=== PATIENT | female | born 1995 | race African-American/Black ===

== ENCOUNTER 2023-07-16 13:46 | Emergency (ER) | payer OTHER, SELFPAY ==
--- NOTE | ~2023-07-16 | XR_ITS ---
XR finger 3rd RT min 2V 07/16/2023 14:33 INDICATION: Right third finger pain and swelling PROCEDURE: 4 views right third finger COMPARISON: No prior studies for comparison. FINDINGS: Fracture, dislocation or subluxation is not identified. The soft tissues appear within norm al limits. No foreign bodies are identified. IMPRESSION: 1: NO ACUTE BONE OR JOINT ABNORMALITY IDENTIFIED. Reviewed, dictated and finalized at location B.
[2023-07-16 13:50] VITALS: BP 162/97; PULSE 84; RESP 16; TEMP 35.8; O2SAT 98
--- NOTE | 2023-07-16 14:11 | ED.SKABFB ---
HPI - Skin/Abscess/Foreign Bdy General Chief complaint: Skin/Abscess/Foreign Body Stated complaint: finger wound Time Seen by Provider: 07/16/23 13:59 History of Present Illness HPI narrative: Patient is a 27 year old female with no PMH here with right middle finger pain and swelling. 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 She noted immediate pain followed by bruising and some finger tip numbness. The bruising has improved over the last week and half but 3 days ago started noticing swelling to the finger as well as drainage from the finger tip. She went to an urgent care yesterday, they started her on doxycycline which she took the 1st dose of today. She denies any fever chills. She notes that it drains a small amount of purulence from underneath the fingernail. She is right handed. She denies any fever or chills. Denies any additional injuries. Related Data Allergies Allergy/AdvReac Type Severity Reaction Status Date / Time No Known Allergies Allergy Verified 07/16/23 17:25 Review of Systems Review of Systems: All systems reviewed & are unremarkable except as noted in HPI and below Exam Narrative: GENERAL: Well-appearing, well-nourished, and in no acute distress. NECK: Supple. CHEST: No respiratory distress. HEART: Regular rate and rhythm. Normal peripheral pulses. EXTREMITIES: Isolated mild swelling to the middle finger on the right hand. She holds the digit in mild flexion however can be passively extended without pain. No pain along the flexor surface of the finger or hand. She has isolated pain to the distal finger tip with some overlying dried skin. No warmth, no obvious drainage, normal capillary refill. SKIN: Warm, dry, no rash. NEURO: No focal deficits. Alert and oriented x3. Course Course Emergency Course: Chart review performed. Patient here with right middle finger pain, swelling and drainage. Triage vitals show HTN, otherwise normal. No prior visits in our system. Patient seen evaluated, nontoxic appearing. She appears to have a a swollen and painful right index finger after an injury about a week and half ago. Her flexor tendon area is nontender and she does allow passive range of motion. The only area of tenderness on her finger appears to be the distal tip of her finger and nail bed. Will do XR to evaluate for underlying tuft injury as well as basic lab work. Patient agreeable to workup and plan. X-ray shows no acute finding, lab work grossly normal with minimal elevation in CRP. Attempt at I&D very difficult due to large callus on the tip of the middle finger. Minimal purulent drainage expressed. Will add on additional antibiotic and give pain meds, and hand surgery referral. At this point I do not feel that patient's workup or exam are consistent with flexor tenosynovitis. Strict return precautions discussed with patient. The results of pertinent diagnostic studies and exam findings were discussed. The patient?s provisional diagnosis and plan of care were discussed with the patient and present family. The patient and/or present family expressed understanding of the diagnosis and plan. The nurse was instructed to provide written instructions and appropriate follow-up information. The patient understands their need and responsibility to obtain additional follow-up as instructed. The risks of medications administered and prescribed were discussed with the patient and family present. Vital Signs Vital signs: Vital Signs Temperature 96.5 F L 07/16/23 13:50 Pulse Rate 84 07/16/23 13:50 Respiratory Rate 16 07/16/23 13:50 Blood Pressure 162/97 H 07/16/23 13:50 Pulse Oximetry 98 07/16/23 13:50 Temperature 96.5 F L 07/16/23 13:50 Pulse Rate 77 07/16/23 17:26 Respiratory Rate 18 07/16/23 17:26 Blood Pressure 158/90 H 07/16/23 17:26 Pulse Oximetry 97 07/16/23 17:26 Procedures Abscess I/D hand: Da
[2023-07-16 14:49] LABS: Basophils Percent Auto 0.4 % (0.2-1.2); Eosinophils Absolute Auto 0.2 K/mm3 (0-0.3); Eosinophils Percent Auto 1.9 % (0-4.4); Hematocrit 41.1 % (37.0-47.0); Hemoglobin 13.9 g/dL (12.0-15.0); Immature Granulocyte Absolute 0.05 K/mm3 (0.00-0.031); Immature Granulocyte Percent A 0.6 % (0-0.5); Lymphocytes Percent Auto 24.6 % (18.3-44.2); Mean Corpuscular HGB Conc 33.8 g/dl (32-36); Mean Corpuscular Volume 91.5 fl (80-100); Mean Platelet Volume 8.8 fl (7.4-10.4); Monocytes Absolute Auto 1.1 K/mm3 (0.1-0.6); Monocytes Percent Auto 12.5 % (2.6-8.5); Neutrophils Absolute Auto 5.1 K/mm3 (1.3-6.7); Platelet Count Result 210 k/mm3 (150-375); Red Blood Count 4.49 M/mm3 (4.2-5.4); Red Cell Distribution Width 13.5 % (11.5-14.5); White Blood Count 8.5 K/mm3 (4.5-10.0)
[2023-07-16 15:01] LABS: Alanine Aminotransferase 28 U/L (6-35); Albumin Level 4.3 g/dL (3.5-5.1); Alkaline Phosphatase 59 U/L (38-126); Anion Gap 6 mmol/L (4-12); Aspartate Amino Transferase 35 U/L (14-36); Bilirubin,Total 0.6 mg/dL (0.2-1.3); Blood Urea Nitrogen 9 mg/dL (7-17); CRP 1.3 mg/dL (<1.0); Calcium 8.9 mg/dL (8.4-10.2); Carbon Dioxide 27 mmol/L (22-30); Chloride 105 mmol/L (98-107); Estimated CRCL calculation 116 ml/min; Estimated Glomerular Filt Rate > 60; Glucose 115 mg/dL (65-110); Potassium 3.1 mmol/L (3.4-5.0); Sodium 138 mmol/L (137-145)
[2023-07-16 15:15] LABS: Atypical Lymphocytes Present; Platelet Estimate Adequate (Adequate); Schistocytes None Seen
[2023-07-16] MEDS: Please add drug allergy info to patient profile. 1 EACH XX (16:46)
[2023-07-16] MEDS: LIDOCAINE HCL 1% LOCAL INJ 10 ML VIAL 5 ML INFILTRATE (16:46)
[2023-07-16 17:26] VITALS: BP 158/90; PULSE 77; RESP 18; O2SAT 97
[2023-07-16] MEDS: HYDROcodone/acetaminophen (*CRX) 5-325 MG TABLET 1 TAB PO (17:26)
== END 2023-07-16 18:00 | disposition home or self-care (01) ==
PROVIDERS: Emergency Provider Student in an Organized Health Care Education/Training Program
DX: L03.011 Cellulitis of right finger (principal)
CPT/HCPCS: 26010; 36415; 73140; 80053; 85025; 86140; 99283; A9270

== ENCOUNTER 2023-07-22 07:00 | Outpatient (NON) | payer OTHER, SELFPAY | END 2023-07-22 07:01 | disposition home or self-care (01) | LOC: ANHLAB 07-23 14:46 | PROVIDERS: Visit Provider Plastic Surgery | DX: L08.9 Local infection of the skin and subcutaneous tissue, unspecified (principal) | CPT/HCPCS: 87070; 87205; 88304 ==

== ENCOUNTER 2023-07-22 08:35 | Day surgery (SDC) | payer OTHER, SELFPAY ==
[2023-07-20 13:23] VITALS: BMI 27.7
[2023-07-20 14:47] VITALS: BMI 27.5
--- NOTE | 2023-07-22 07:14 | P.OP_ITS ---
Procedure Note - Detailed Date of Procedure 07/22/23 Pre-op Diagnosis Infection of right middle finger. Post-op Diagnosis Same Procedure Performed R I&D Surgeon Jarret Shelton MD Anesthesia MAC Description of Procedure INFORMED CONSENT: The patient was seen and examined and marked in the pre-op area.? The patient signed the consent form. PROCEDURE IN DETAIL:The patient taken back to OR on the stretcher in supine position. Time out performed with anesthesia, surgeon and staff agreeing on patient's name site and surgery to be performed SCDs were placed on the lower extremities and inflated. A tourniquet was placed on {right} upper extremity and antibiotics given IV After anesthesia administered sedation I injected {3}cc 1%lidoand 0.5% marcaine plain for digitial block in the palm The?{right upper extremity}?was prepped and draped in sterile fashion the??{right upper extremity} was? exsanguinated with Esmarch bandage and tourniquet inflated to 250mmHg I undermined the hyponychium and trimmed the distal nail plate back for improved access and visualization of the hyponychium. This resulted in release of purulent material and debris which was sharply debrided with 15 blade and littler scissors leaving a granulated area ~6mm in diamter at tip of finger/hyponychium. I proceeded with making a longitudinal incision proxmal to this open wound through skin and dermis with a 15 blade scalpel. I spread with littler scissors down to periosteum oopening any undrained deep compartments th ough no significant or identifiable collections were noted. cultures were taken of the purulent fluid. I soaked the finger in betadine, saline peroxide solution for 5 minutes then rinsed in normal saline. I partially closed the incision with 4-0 chromic A dressing of xeroform, 4x4, tube gauze, was applied after the tourniquet was let down noting the hand was warm and well perfused. The patient was then awaken from anesthesia and transferred to the recovery room in stable condition.? Complications - none EBL- 0cc Disposition - home in stable conditions Valerie suazo pa-c was essential for positioning, retraction, closure and dressing placement [facility] Billing Surgery - Charge Forward: Surgery Billing ([id number] same for valerie adding modifier )
--- NOTE | 2023-07-22 07:14 | WPDHPUPDATE1 ---
History and Physical Update Update Date/Time: 07/22/23 07:14 Patient seen and examined in pre-operative holding area. No interval change in medical history or symptoms. Patient recalls previous discussion of benefits and alternatives to procedure. Continues to desire to proceed with right middle finger incision and drainage. Reviewed procedure, post-op expectations and risks including but not limited to bleeding, infection, injury to tendon/nerve/vessel, decreased hand function, stiffness, RSD, no change or worsening of symptoms. I discussed the possible use of assistants and their participation in the case. Patient stated understanding and signed the consent form wishing to proceed.
[2023-07-22 09:44] VITALS: BP 187/108; PULSE 50; RESP 18; TEMP 36.8; O2SAT 100; BMI 27.2
--- NOTE | 2023-07-22 09:59 | WPDANESEPPF ---
Anes - Initial Pre Proc Eval Procedure: Operation Date: 07/22/23 10:00 Proposed Procedures p Right Middle Finger Felon Incision and Drainage. - Jarret Shelton MD Date/Time: 07/22/23 09:59 Surgeon: Jarret Shelton MD Pre Op Diagnosis: Infection of right middle finger. Patient Data Age: 27 Gender: F Height: 1.8 m Weight: 88.7 kg Last Vital Signs Temp 36.8 C 07/22/23 09:44 Pulse 50 L 07/22/23 09:44 Resp 18 07/22/23 09:44 BP 187/108 H 07/22/23 09:44 Pulse Ox 100 07/22/23 09:44 O2 Del Method Room Air 07/22/23 09:44 Allergies Allergy/AdvReac Type Severity Reaction Status Date / Time No Known Allergies Allergy Verified 07/22/23 09:30 Home Medications Medication Instructions Recorded Confirmed Type acetaminophen 500 mg tablet 1,000 mg PO Q6-8H PRN Breakthrough 07/20/23 07/22/23 History Pain, Mild sulfamethoxazole 800 1 tablet PO Q12H #14 tabs 07/22/23 Rx mg-trimethoprim 160 mg tablet (Bactrim DS) tramadol 50 mg tablet 50 mg PO Q6H PRN pain #12 tabs 07/22/23 Rx Patient hx anesthesia problems: none Family hx anesthesia problems: none Results Review: All pre-operative results and documents have been reviewed as part of the pre-operative evaluation. [facility] Past Medical History Medical History (Updated 07/22/23 @ 10:02 by Gal New MD) Overweight Social History Social History Smoking status: Never smoker Second hand tobacco smoke exposure: No Alcohol intake: current Substance use: never Substance use type: does not use Living arrangements: with family Spiritual care concerns: No Anes - Eval Final PreProcedure Day of Procedure 07/22/23 09:59 Patient weight: overweight Heart: regular rate and rhythm Lungs: clear to auscultation Airway: Mallampati scale class II Neurological: alert and oriented Last oral intake: >/= 8 hours ASA classification: II Emergent: no Anesthetic plan: proceed Anesthesia type and monitoring: general GIVS and standard monitoring Results Review: All pre-operative results and documents have been reviewed as part of the pre-operative evaluation. Informed Consent: The patient's anesthetic plan and its attendant risks and benefits were discussed with the patient/family/POA. Questions were solicited and answers provided to the satisfaction of the patient/family/POA.
--- NOTE | 2023-07-22 10:07 | SUR.PREOP ---
NOTIFIED DR THOMSON OF PT'S INITIAL BP OF 187/108. HR 50. PT C/O PAIN AT 10/18. PT ELEVATING RT HAND. WILL RECHECK BP
[2023-07-22] MEDS: LACTATED RINGERS 1,000 ML 30 ML IV CONT (10:24)
--- NOTE | 2023-07-22 10:25 | SUR.PREOP ---
DR PAREDES STATES NO ANTIBIOTIC, PT ON ORAL ANTIBX
[2023-07-22 10:29] VITALS: BP 152/73; PULSE 53; RESP 16
--- NOTE | 2023-07-22 10:29 | SUR.PREOP ---
BP RECHECKED. 152/73, HR 53. DR THOMSON NOTIFIED
[2023-07-22] MEDS: BUPivacaine HCL 0.5% 10 ML AMP 5 ML INFILTRATE (10:39)
[2023-07-22] MEDS: LIDOCAINE HCL 1% LOCAL INJ 20 ML VIAL 5 ML INFILTRATE (10:39)
[2023-07-22 11:34] VITALS: BP 155/82; PULSE 52; RESP 18; O2SAT 98
--- NOTE | 2023-07-22 11:39 | WPDANESPN ---
Anes - Prog Note Post-Op Date/Time: 07/22/23 11:39 Cardiovascular status: normal Respiratory status: normal Airway patency: baseline Mental status: baseline Post-Op hydration status: normal Vital Signs: Last Vital Signs Temp 36.8 C 07/22/23 09:44 Pulse 53 L 07/22/23 10:29 Resp 16 07/22/23 10:29 BP 152/73 H 07/22/23 10:29 Pulse Ox 100 07/22/23 09:44 O2 Del Method Room Air 07/22/23 09:44 Pain Score (VAS): 0/10 Patient Feedback: Patient satisfied with anesthetic care.
== END 2023-07-22 11:34 | disposition home or self-care (01) ==
PROVIDERS: Visit Provider Plastic Surgery
PROC: (CPT 26011; principal; 2023-07-22 10:00)
DX: L08.89 Other specified local infections of the skin and subcutaneous tissue (principal)
CPT/HCPCS: 26011

== ENCOUNTER 2023-07-22 10:46 | Outpatient (NON) | payer OTHER, SELFPAY | END 2023-07-22 14:04 | disposition home or self-care (01) | PROVIDERS: Visit Provider Plastic Surgery | DX: L08.9 Local infection of the skin and subcutaneous tissue, unspecified (principal) | CPT/HCPCS: 87070; 87077; 87205 ==